=== PATIENT | female | born 1955 | race Caucasian/White ===

== ENCOUNTER 2016-09-27 09:10 | Emergency (ER) | payer MEDICARE, MEDICAID ==
[2016-09-27 09:22] VITALS: BP 168/71
[2016-09-27] MEDS ORDERED: ACETAMINOPHEN 325 MG TABLET PO ONE (09:34)
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
[2016-09-27] MEDS ORDERED: ACETAMINOPHEN 325 MG TABLET ONE (10:00)
== END 2016-09-27 10:03 | disposition home or self-care (01) ==
LOC: ER 09:10
DX: M79.1 Myalgia (principal); W18.30XA Fall on same level, unspecified, initial encounter; Y93.9 Activity, unspecified; Y92.512 Supermarket, store or market as the place of occurrence of the external cause; Y99.9 Unspecified external cause status; E11.9 Type 2 diabetes mellitus without complications; I10 Essential (primary) hypertension; K21.9 Gastro-esophageal reflux disease without esophagitis

== ENCOUNTER 2017-03-30 09:03 | Emergency (ER) | payer MEDICARE, MEDICAID ==
[2017-03-30 10:09] LABS: Hemoglobin 13.2 gm/dL (12.5-16.0); Mean Cell Volume 87.2 fl (78-100); Mean Corpuscular Hemoglobin 30.3 pg (27-31); Mean Corpuscular Hgb Conc 34.7 g/dl (32-36); Mean Platelet Volume 8.8 fl (6.0-9.5); Neutrophil # 2.7 K/mm3 (1.3-6.0); Neutrophil % 63.9 % (42-75.0); Platelet Count 189 K/mm3 (150-450); Red Blood Count 4.36 M/mm3 (4.2-5.4); Red Cell Distribution Width 12.9 % (11.5-14.0); White Blood Count 4.3 K/mm3 (4.0-10.5)
[2017-03-30 10:27] LABS: ALT 33 U/L (19-67); AST 18 U/L (0-48); Albumin * 3.8 gm/dl (3.4-5.0); Alkaline Phosphatase * 106 U/L (50-170); Anion Gap 9.5 mmol/L (6.8-13.8); Bilirubin, Total 0.3 mg/dL (0.0-1.1); Ca. Corrected For Albumin 8.8 mg/dL (8.4-10.2); Carbon Dioxide 28.8 mmol/L (24-32.6); Chloride 101 mmol/L (97-106); Glucose * 207 mg/dL (70-110); Potassium 4.3 mmol/L (3.4-4.6); Sodium 135 mmol/L (132-142); Total Protein 7.6 gm/dL (6.2-8.2); Troponin I Less than 0.017 ng/ml (0.00-0.10)
[2017-03-30 10:44] LABS: BUN/Creatinine Ratio 14.7 (9.0-21.6); Blood Urea Nitrogen 14 mg/dL (3-23)
--- NOTE | 2017-03-30 11:01 | ERNOTE ---
Date of Service: 03/30/17 Time Seen by Provider: 03/30/17 09:35 Stated Complaint: URI Presenting Symptoms:: cough Source: patient Exam Limitations: no limitations Immunizations: IMMUNIZATION HX Immunizations Up to Date Yes History of Influenza Vaccine No Hx Pneumococcal Vaccination No Allergies/Adverse Reactions: Allergies celecoxib [From Celebrex] Allergy (Verified 03/30/17 09:18) hands feet itch, burn ibuprofen Allergy (Verified 03/30/17 09:18) hives, passed out, vomitting influenza virus vaccine, specific [Influenza Virus Vacc,Specific] Allergy ( Verified 03/30/17 09:18) guillian terrance syndrome latex Allergy (Verified 03/30/17 09:18) Anaphylaxis Penicillins Allergy (Verified 03/30/17 09:18) unknown Home Medications: HOME MEDICATIONS EPINEPHrine [Epipen] 0.3 mg IJ DAILY PRN 12/09/13 [Last Taken Unknown] Lisinopril/Hydrochlorothiazide [Lisinopril-Hctz 20-12.5 mg Tab] 2 each PO DAILY 12/09/13 [Last Taken Unknown] metFORMIN HCL [Glucophage Xr] 500 mg PO DAILY 12/09/13 [Last Taken Unknown] Albuterol Sulfate [Ventolin Hfa] 18 gm IH PRN 08/12/16 [Last Taken Unknown] Aspirin [Aspirin EC] 81 mg PO DAILY 08/12/16 [Last Taken Unknown] Esomeprazole Magnesium [Nexium] 20 mg PO DAILY 08/12/16 [Last Taken Unknown] Albuterol Sulfate [Proair Hfa] 2 puff IH Q4H PRN #1 inhaler 03/30/17 [Last Taken Unknown] Atorvastatin Calcium 40 mg PO DAILY 03/30/17 [Last Taken Unknown] Azithromycin [Zithromax] 500 mg PO NOW #6 tab 03/30/17 [Last Taken Unknown] Dulaglutide [Trulicity] 0.75 mg SQ 2XW 03/30/17 [Last Taken Unknown] Fenofibrate Nanocrystallized [Tricor] 145 mg PO DAILY 03/30/17 [Last Taken Unknown] Gabapentin 300 mg PO DAILY 03/30/17 [Last Taken Unknown] Hydrochlorothiazide [Microzide] 12.5 mg PO DAILY 03/30/17 [Last Taken Unknown] - History of Present Ilness Narrative: patient presents to the ED for coug. THis cough has been present for approx 5 days but worsening for the last 3 days. No SOB with this. She feels like she cannot bring anything up with it. No hemoptysis. She has CP with cough for 3 days. No pleuritic pain. No calf pain or new leg swelling. She has been using her neti pot the the sinus Sx that have come along with this. Timing: constant Severity: moderate Frequency/Possible Cause: Reports: occasional episodes Modifying Factors - Improves: Reports: nothing Modifying Factors - Worsens: Reports: nothing Associated Symptoms: Reports: cough. Denies: headache, sore throat Prior Treatment: Denies: recently seen Review of Systems - Review of Systems Constitutional: Absent: fever EYE: Present: no symptoms reported ENT: Present: See HPI Respiratory: Present: See HPI Cardiology: Present: See HPI Gastrointestinal/Abdominal: Absent: abdominal pain Genitourinary: Absent: dysuria Skin: Absent: rash Neurological: Absent: weakness - Patient's Past Medical History Patient History - Medical: Diabetes Type 2, GERD Patient History - Cardiac/Respiratory: Hypertension Patient History - Cancer: Skin Patient History - Surgical Procedures: D & C, Other Patient History - Other: None LMP (females 10-50): Menopausal - Social History Living Situations: alone Abuse History: No History of abuse Psych History: No pertinent hx Smoking Status: Former smoker Have you smoked in the past 12 months: No Do you dip or chew tobacco: No Alcohol Use: occasionally Drug Use: none - Immunizations Immunizations Up to Date: Yes Hx Pneumococcal Vaccination: No History of Influenza Vaccine: No Physical Exam - Physical Exam General Appearance: Present: alert, no apparent distress, other - non-toxic, well hydrated, speaking in full sentences. No distress. Occasional cough Head Exam: Present: normal inspection, no evidence of injury Eye Exam: Normal inspection: bilateral, PERRL: bilateral Ears, Nose, Throat: Present: nasal congestion, sinus pain/drainage. Absent: pharyngeal erythema, pharyngeal swelling, tonsillar exudate, tonsillar swelling , dry mucous membranes Neck: Present: normal inspection, nontender Respiratory: Present: no respiratory distress, normal breath sounds, no accessory muscle use, lungs clear, other - occasional cough Cardiovascular/Chest: Present: regular rate, rhythm, normal peripheral pulses Gastrointestinal/Abdominal: Present: normal bowel sounds, nontender, soft Back Exam: Present: normal range of motion Extremity Exam: Present: normal inspection, other - no DVT findings Neurological Exam: Present: alert, no motor/sensory deficits Skin Exam: Present: normal color, warm/dry ED Progress - Results and Orders Patient's Lab Results:: I have reviewed the patient's lab results. - Vital Signs Patient's Vital Signs:: I have reviewed the patient's vital signs. Vital Signs: Vital Signs 03/30/17 09:11 Temperature 36.4 C L Pulse Rate 80 Respiratory 14 Rate Blood Pressure 131/80 O2 Sat by Pulse 95 Oximetry - EKG EKG: NSR EKG read: Interp. by me EKG Comments: NSR rate 79. No evidence of STEMI - X-Ray X-Ray #1 X-Ray: chest Interpretation: Interp. by me X-ray Comments: Not being read in real time by radiology. NAPP noted. - Progress/Reassessment Chief Complaint: Upper Respiratory Symptoms Progress Note-Subjective: 03/30/17 10:53 No suggestion of ACS, PE, aortic dissection or other acute life threat. No hypoxia, no distress. She wishes to go home. Will cover with ABx given her lung Hx and the sinusitis. I discussed warning signs and reasons to return as well as the need for close f/u. 03/30/17 10:55 03/30/17 11:00 Departure Clinical Impression: Bronchitis - Departure Disposition: Home self-care Condition: Stable Instructions: Cough, Adult, [id number] Additional Instructions: Rest. Fluids. Keep your doctor appointment tomorrow. See your primary doctor within 3 days for a re-check. Return for trouble breathing, fever or if your condition worsens or changes in any way. Prescriptions: Albuterol Sulfate [Proair Hfa] 2 puff IH Q4H PRN #1 inhaler PRN Reason: Shortness Of Breath Azithromycin [Zithromax] 500 mg PO NOW #6 tab
[2017-03-30 11:11] VITALS: BP 131/28
== END 2017-03-30 11:08 | disposition home or self-care (01) ==
LOC: ER 09:03
DX: J40 Bronchitis, not specified as acute or chronic (principal); Z87.891 Personal history of nicotine dependence; E11.9 Type 2 diabetes mellitus without complications; I10 Essential (primary) hypertension; Z85.828 Personal history of other malignant neoplasm of skin; K21.9 Gastro-esophageal reflux disease without esophagitis